=== PATIENT | male | born 1945 | race Caucasian/White ===

== ENCOUNTER 2016-07-18 08:54 | Day surgery (SDC) | payer MEDICARE, BC ==
[~2016-07-18] VITALS: Ht 190.5 cm; Wt 96.4 kg
[2016-07-18] VITALS (7 sets, daily range): BP systolic 128–198; BP diastolic 60–102; PULSE 50–63; RESP 16–20; TEMP 97.5–97.7; O2SAT 93–97
[~2016-07-18 08:54] MED LIST: CLON1TAB PO; FURO1TAB60 PO; HYDR-3366 PO; IBUP800T23 PO; MINO2.5T PO; POTA-163 PO; TRIA37.5 PO
[2016-07-18] MEDS ORDERED: SODIUM CHLOR 0.9% 1000 ML INJ 1,000 ML IV SCH (10:00)
[2016-07-18 10:02] LABS: AUTOMATED NEUTROPHIL # 3.7 TH/MM3 (1.8-7.7); BASOPHIL # 0.1 TH/MM3 (0-0.2); EOSINOPHIL # 0.2 TH/MM3 (0-0.4); EOSINOPHIL % 3.3 % (0.0-4.0); HEMO FLAGS DIFF FINAL; LYMPH % 26.2 % (9.0-44.0); LYMPHOCYTE # 1.7 TH/MM3 (1.0-4.8); MEAN CELL VOLUME 91.5 FL (80.0-100.0); MEAN CORPUSCULAR HEMOGLOBIN 31.7 PG (27.0-34.0); MEAN CORPUSCULAR HGB CONC 34.6 % (32.0-36.0); MONO % 11.7 % (0.0-8.0); NEUT % 57.8 % (16.0-70.0); PLATELET COUNT 199 TH/MM3 (150-450); RED BLOOD COUNT 4.26 MIL/MM3 (4.50-5.90); RED CELL DISTRIBUTION WIDTH 13.2 % (11.6-17.2); WHITE BLOOD COUNT 6.5 TH/MM3 (4.0-11.0)
[2016-07-18 10:12] LABS: APTT (PATIENT) 27.4 SEC (24.3-30.1); PROTHROMBIN TIME - PATIENT 10.9 SEC (9.8-11.6)
[2016-07-18] MEDS ORDERED: MIDAZOLAM HCL 5 MG/5 ML VIAL ONE (10:42)
[2016-07-18] MEDS ORDERED: fentaNYL CITRATE 250 MCG/5 ML AMP ONE (10:43)
[2016-07-18 10:44] LABS: BICARBONATE 31.9 MEQ/L (21.0-32.0); POTASSIUM 3.4 MEQ/L (3.5-5.1)
[2016-07-18] MEDS ORDERED: TRIAMCINOLONE ACETONIDE 40 MG/ML VIAL ONE (11:42)
--- NOTE | 2016-07-18 14:44 | PD.RAD ---
Post Procedure Progress Note Pre Procedure Diagnosis: (1) Lumbago without sciatica Post Procedure Diagnosis: (1) Lumbago without sciatica Procedure Date: July 18, 2016 Supervising Radiologist: Tod Mcmahon Proceduralist/Assist: Marysol Burns, RT(R), Sylvia Bello RT(R)() Anesthesia: Local, Conscious Sedation Plan of Activity Patient to Unit: [facility] Patient Condition: Good See PACS Report for procedural detail/treatment Spinal Procedure Neurolysis L2, L3, L4, L5 Additional Detail: bilateral medial branch rhizotomies Tod Mcmahon MD July 18, 2016 14:44
--- NOTE | 2016-07-18 14:54 | RADRPT ---
EXAM DATE/TIME: 07/18/2016 10:31 [facility] COMPARISON: No previous studies available for comparison. INDICATIONS : Patient with history of chronic low back pain in need of lumbar rhizotomy. MEDICAL HISTORY : HTN, Right sided back pain, Osteoarthritis SURGICAL HISTORY : Lung surgery ENCOUNTER: Subsequent ACUITY: >1 year PAIN SCORE: 0/10 FLUORO TIME: 13 minutes IMAGE SERIES: 2 SEDATION: 45 minutes ACCESS LEVEL: Left L4 MEDICATION(S): 1.) 4 mg midazolam (Versed) IV 2.) 200 mcg fentanyl (Sublimaze) IV 3.) 0.125 cc triamcinolone (Kenalog) IA RESPONSE: Pre procedure pain level was 0/10. Post procedure pain level was 0/10. PROCEDURE : 1. Fluoroscopically guided radiofrequency ablation of median branch. The risks, benefits and alternatives to the procedure were explained and verbal and written consent w as obtained. The site was prepped in sterile fashion. Full sterile technique was used, including ca p, mask, sterile gloves and gown and a large sterile sheet. Hand hygiene and 2% chlorhexidine and/or betadine/alcohol prep was utilized per protocol for cutaneous antisepsis. The skin and subcutaneous tissues were infiltrated with local anesthetic solution. Under fluoroscopic guidance a 20 gauge needle was placed at the origin of the median branch at the ju nction of the superior aricular facet and transverse process at the prescribed level and confirmed to be appropriately positioned in both AP and lateral projections. The radiofrequency probe was placed and resistance was confirmed to be within the appropriate range. Following this radiofrequency abla tion was performed for a total of 105 seconds. The patient tolerated the procedure well and there we re no complications. CONCLUSION: Uncomplicated median branch block. Tod Mcmahon MD on July 18, 2016 at 14:53 Board Certified Radiologist. This report was verified electronically.
--- NOTE | 2016-07-18 14:55 | RADRPT ---
EXAM DATE/TIME: 07/18/2016 10:31 [facility] COMPARISON: No previous studies available for comparison. INDICATIONS : Patient with history of chronic low back pain in need of lumbar rhizotomy. MEDICAL HISTORY : HTN, Right sided back pain, Osteoarthritis SURGICAL HISTORY : Lung surgery ENCOUNTER: Subsequent ACUITY: >1 year PAIN SCORE: 0/10 FLUORO TIME: 13 minutes IMAGE SERIES: 2 SEDATION: 45 minutes ACCESS LEVEL: Right L3 MEDICATION(S): 1.) 4 mg midazolam (Versed) IV 2.) 200 mcg fentanyl (Sublimaze) IV 3.) 0.125 cc triamcinolone (Kenalog) [place] RESPONSE: Pre procedure pain level was 0/10. Post procedure pain level was 0/10. PROCEDURE : 1. Fluoroscopically guided radiofrequency ablation of median branch. The risks, benefits and alternatives to the procedure were explained and verbal and written consent w as obtained. The site was prepped in sterile fashion. Full sterile technique was used, including ca p, mask, sterile gloves and gown and a large sterile sheet. Hand hygiene and 2% chlorhexidine and/or betadine/alcohol prep was utilized per protocol for cutaneous antisepsis. The skin and subcutaneous tissues were infiltrated with local anesthetic solution. Under fluoroscopic guidance a 20 gauge needle was placed at the origin of the median branch at the ju nction of the superior aricular facet and transverse process at the prescribed level and confirmed to be appropriately positioned in both AP and lateral projections. The radiofrequency probe was placed and resistance was confirmed to be within the appropriate range. Following this radiofrequency abla tion was performed for a total of 105 seconds. The patient tolerated the procedure well and there we re no complications. CONCLUSION: Uncomplicated median branch block. Tod Mcmahon MD on July 18, 2016 at 14:54 Board Certified Radiologist. This report was verified electronically.
== END 2016-07-18 15:15 | disposition home or self-care (01) ==
LOC: HROP 08:54 → HRIP 08:55 → HROP 15:15
PROVIDERS: ATTEND Internal Medicine
DX: M54.5 Low back pain (principal); Z01.818 Encounter for other preprocedural examination
CPT/HCPCS: 64635; 64636; 80048; 85025; 85610; 85730; 99152; 99153; J2250; J3010; J3301; J7030